=== PATIENT | female | born 1955 | race Hispanic/Latino ===

== ENCOUNTER 2018-03-05 07:13 | Day surgery (SDC) | payer BC ==
[2018-02-25 10:50] VITALS: BMI 31.7
[2018-03-05] MEDS ORDERED: Sodium Chloride 0.9% 1,000 ML IV SCH (08:30)
[2018-03-05] MEDS ORDERED: Propofol 10 mg/ml Inj (20 ML) ONE (08:41)
[2018-03-05 11:37] VITALS: TEMP 97.8
[2018-03-05 11:38] VITALS: BP 125/56; PULSE 61; RESP 20; O2SAT 96
== END 2018-03-05 11:18 | disposition home or self-care (01) ==
LOC: ENDO 07:13
PROVIDERS: ATTEND Specialist
DX: Z12.11 Encounter for screening for malignant neoplasm of colon (principal); K64.8 Other hemorrhoids; E03.9 Hypothyroidism, unspecified; M51.9 Unspecified thoracic, thoracolumbar and lumbosacral intervertebral disc disorder; Z96.642 Presence of left artificial hip joint; Z90.710 Acquired absence of both cervix and uterus
CPT/HCPCS: 45378; J2001; J2405; J2704; J7030